=== PATIENT | male | born 1990 | race Caucasian/White ===

== ENCOUNTER 2018-02-25 12:55 | Outpatient (RCR) | payer MEDICAID, SELFPAY ==
--- NOTE | 2018-02-25 10:45 | IE_ITS ---
Date: February 25, 2018 Referring: Dr. Jerald Simpson Diagnosis: Paraplegia and transient R leg weakness P.T. Diagnosis: Same SUBJECTIVE: History of Present Illness: Pt presents with his mother and 2 caregivers. Mother and caregivers provide entirety of history as pt is non-verbal. They state that Daniel has been progressively losing strength and muscle mass. he has been diagnosed with osteopenia and has had 4 fractures of the RLE and multiple compression fractures in the spine. His mother has questions about building LE strength and bone density and general prevention of fractures and injury. They report that pt is able to do supervised transfers and is able to stand for short periods to brush his horse. He does weekly horseback riding sessions utilizing a Mitali lift and also attends the pool for aquatic exercises with assistance from his caregivers 3x/week. He does this at the [facility], where his mother reports that the water is quite deep. He had used the [facility] previously and she states that she would like to return there as the water is shallower and would allow for more WB. Pain Rating: Unable to verbalize. Current Level of Function: Pt is currently non-ambulatory. As noted above, he is able to statically stand for short periods with assistance from his caregivers. He transfers with supervision. Utilizes a lift to get in and out of the pool. Previous Treatment: Pt has had PT intervention several years ago consisting primarily of aquatic therapy. He has been carrying out this program independently with caregivers 3x/week. He also receives hippotherapy weekly. Social: Comorbidities: Anxiety, incontinence, asthma, thyroid dysfunction and osteoporosis. Pt's mother reports history of 4 fractures in the RLE including a rotted femur. Falls in the last year: __X__ No Reported hospitalizations in the last year - __X__ No Medications: Cirtruline, ergocalciferol, alendronate, hydrochlorothiazide, lisinopril, acetaminophen, levothyroxine, multi-vitamin, polyethylene glycol. Quality of Life: __Unable to rate_ Standardized Measures: As filled out by pts mother: 85% deficit OBJECTIVE: Posture: Pt is semi-reclined on treatment table at initiation of session. He has caregiver on either side of him holding his hands and assisting with calming him. He is able to perform assisted standing, where he demonstrates significant thoracic kyphosis with a R scoliotic convexity. He also maintains LE pressure to the edge of his wheelchair and maximal UE support to rail. Requires mod assist of 2 from caregivers. In seated position, pt is in a luz marina space chair with head support and seatbelt and pressure relief cushion. He has fixed leg rests bilaterally. Observation: (behavior, atrophy, skin color, etc.) Pt is non-verbal. He is quite vocal throughout session and appears anxious. He is calmed by his caregivers by holding their hands and performing counting exercises. He does become agitated at times, pushing WW out of his way and grabbing the clothing of treating therapist on 3 occasions. He also swats at his caregivers on a couple of occasions. Pt has bilateral AFOs. Gait: Unable. Pt is able to independently transfer from plinth to chair with supervision and without assistive device. He demonstrates excellent safety with this. He attempted sit to stand transfer with WW, although becomes quite agitated during completion.Instead, attempted sit to stand transfer with use of fixed bar, where pt is is able to pull up anteriorly and he requires mod assist of 2 from caregivers and statically stands with support x 30 min. Palpation: Pt has obvious atrophy of bilateral LE's. Edema: None. ROM: Grossly WNL. Pt demonstrates normal UE motions. He lacks about 10 degrees of knee extension bilaterally. Ankle motion not assessed due to AFOs in place. Strength: Blue Split Trimmer is strong and equal. Pt is able to demonstrate full AROM of bilateral UE' s. He is unable to follow instructions for manual muscle testing; however, he demonstrates obvious strength with functional mobility. LEs' allow 3/5 hip flexion, 3/5 knee extension, again unable to follow commands for manual muscle testing. Treatment: Today's treatment consisted of evaluation, followed by extensive treatment planning with pt's mother and caregiver's. IE: [id number] Direct treatment time: 50 min Total treatment time: 50 min ASSESSMENT: Patient is a 27-year-old male, referred for PT services with the diagnosis of paraplegia and transient RLE weakness. Patient presents with clinical signs and symptoms consistent with mobility issues related to paraplegia and autism. His evaluation is quite limited today due to his levels of anxiety and difficulty following commands for participation during evaluation. His mother's primary concern is improving his bone density and preventing progression of his osteopenia, which will be best addressed with WB activity. He is currently performing an excellent home program including aquatic therapy 3x/week and hippotherapy once a week. However, he really requires introduction of more WB activity, which can be addressed here in the clinic. This may be limited based on pts ability to participate given his levels of anxiety with me today; however , I suspect that we can rely on caregiver instruction as he is extremely comfortable with his caregivers and participates nicely with their assistance. Our goals will be to establish a home program that they can carry-out on a day to day basis. He currently demonstrates the following impairment level findings : decreased LE strength as demonstrated by visible atrophy of the LE musculature , decreased ROM with pt lacking terminal knee extension in the knees, decreased activity tolerance with inability to stand greater than 30 sec. with assistance. Impairments are contributing to the following functional limitations:decreased ability to statically stand, unable to take steps as he had been previously able to perform, development of osteoporotic changes related to non-ambulatory status. Patient is assessed as: __X__ High 13952 complexity, based on the following: History: (list): 27 yo male with autism and paraplegia with marked functional limitations and ciowei-fau-ljldk care. Pt is non-ambulatory and has challenges with participation given levels of anxiety. Examination: (list): X See above for functional limitations and impairments. Presentation: X Unstable Decision-Making: X High complexity __X__ Patient requires skilled PT intervention to remediate the above functional limitations to return to: __X__ Improve QOL __X__ Other: Prevent decline Prognosis: __X__ Fair STG: __6__ weeks. 1. Pt able to tolerate introduction of therapeutic exercises in clinical setting without combative behaviors. 2. Pt able to tolerate static standing with assistance from caregivers x 2 min. for improved ease of self care. LTG: __12__ weeks. 1. Pt able to tolerate standing in a lift-assist at home for 5 min. at a time for prolonged WB to reduce progression of osteoporotic changes. 2. Independent in home program for completion with caregivers. PLAN: Patient to be seen weekly for introduction of WB activities. Will instruct caregivers in a progressive home program. They were provided with handouts for some early exercises that they can initiate from the seated position. I also provided pts mother with a note recommending transition to use of [employer] pool for shallower low end to increase WB forces through the LEs. Thank you for this referral. Please do not hesitate to contact me with any questions or concerns regarding this patient's plan of care. SS/fw
== END 2018-02-27 23:59 | disposition home or self-care (01) ==
LOC: PT 12:55
PROVIDERS: PCP Family Medicine; Referring Provider Family Medicine; Visit Provider Family Medicine
DX: G82.20 Paraplegia, unspecified (principal); M62.81 Muscle weakness (generalized)
CPT/HCPCS: 97163

== ENCOUNTER 2019-01-14 10:10 | Outpatient (CLI) | payer MEDICAID, SELFPAY ==
[2019-01-14 11:51] LABS: ALT 71 U/L (12-78); AST 29 U/L (15-37); Alkaline Phosphatase 80 U/L (46-116); Anion Gap 10.7 mmol/L (3-11); BUN 16 mg/dL (7-18); Bilirubin, Total 1.6 mg/dL (0.2-1.0); CO2 26.3 mmol/L (21.0-32.0); CREATININE 0.94 mg/dL (0.70-1.30); Calcium 9.3 mg/dL (8.5-10.1); Calculated LDL 73 mg/dL; Chloride 98 mmol/L (98-107); Cholesterol 142 mg/dL (50-200); Glucose 362 mg/dL (70-100); HDL Cholesterol 30 mg/dL (40-60); Sodium 135 mmol/L (136-145); TSH (W/Ref FT4) 1.76 uIU/mL (0.358-3.74); Total Protein 7.7 g/dL (6.4-8.2); Triglyceride 195 mg/dL (30-150)
== END 2019-01-14 10:30 ==
PROVIDERS: PCP Family Medicine; Visit Provider Family Medicine
DX: E03.9 Hypothyroidism, unspecified (principal); Z13.220 Encounter for screening for lipoid disorders
CPT/HCPCS: 36415; 80053; 80061; 83721; 84443

== ENCOUNTER 2019-03-02 12:42 | Outpatient (REF) | payer MEDICAID, SELFPAY ==
[2019-03-02 21:07] LABS: Abs Immature Grans 0.02 k/cumm (0.0-0.09); Absolute Basophil Count 0.03 k/cumm (0.0-0.2); Absolute Eosinophil Count 0.07 k/cumm (0.0-0.7); Absolute Lymphocyte Count 1.09 k/cumm (1.2-3.4); Absolute Monocyte Count 0.37 k/cumm (0.11-0.7); Absolute Neutrophil Count 5.08 k/cumm (1.2-6.7); Basophils % 0.5; Eosinophils % 1.1; HCT 49.3 % (40.0-50.0); Immature Grans % 0.3; Lymphocytes % 16.4; Mean Corp. HGB Concentration 34.5 g/dL (32.0-36.0); Mean Corpuscular Volume 87.1 fL (80-95); Mean Platelet Volume 12.4 fL (8.0-11.0); Monocytes % 5.6; Neutrophils % 76.1; Platelet Count 139 x1000/uL (130-400); RBC 5.66 m/cumm (4.50-6.00); RBC Distribution Width 13.4 % (11.8-14.1); White Blood Cell Count 6.66 k/cumm (4.4-10.8)
[2019-03-02 21:32] LABS: Hemoglobin A1C 8.6 % (4.5-6.2)
== END 2019-03-02 13:02 ==
LOC: NCHCN 12:42
PROVIDERS: PCP Family Medicine; Visit Provider Family Medicine
DX: R73.9 Hyperglycemia, unspecified (principal); Z13.0 Encounter for screening for diseases of the blood and blood-forming organs and certain disorders involving the immune mechanism
CPT/HCPCS: 83036; 85025

== ENCOUNTER 2019-03-08 16:14 | Emergency (ER) | payer MEDICAID, SELFPAY ==
--- NOTE | 2019-03-08 16:24 | ED.GENADUL_ITS ---
Discharge Plan Disposition Patient Disposition: HOME Condition: Good Discharge Details Chief Complaint: GenMedical Clinical Impression: URI (upper respiratory infection), Urinary retention Primary Care Provider: Nikki Marques ED Provider: Feli Jones Home Meds and New Rx's Prescriptions: Continued hydrocortisone 30 GM cream 1 applic Topical PRN PRNQty: 60 RF: 0 (DME) blood-glucose meter [FreeStyle Lite Meter] 1 EACH kit 1 ea Miscellaneous TID Qty: 1 RF: 0 acetaminophen 650 MG suppository 650 mg RC Q4H PRN Qty: 40 RF: 2 nystatin 15 GM cream 1 judi Topical BID Qty: 60 RF: 1 alendronate 70 MG tablet 70 mg PO weekly Qty: 13 RF: 3 levothyroxine 50 MCG tablet 50 mcg PO DAILY Qty: 90 RF: 4 lisinopril [Zestril] 10 MG tablet 10 mg PO DAILY Qty: 90 RF: 3 hydrochlorothiazide 25 MG tablet 25 mg PO DAILY Qty: 90 RF: 0 ergocalciferol (vitamin D2) 8,000 UNIT/1 ML drops 6 ml PO PRN Qty: 144 RF: 3 insulin aspart U-100 [Novolog PenFill U-100 Insulin] 100 UNIT/1 ML cartridge 15 units Sub-Q TID Qty: 3 RF: 12 polyethylene glycol 3350 17 GM powder in packet 17 g PO DAILY Qty: 30 RF: 11 sertraline 20 MG/1 ML concentrate 1 ml PO HS Qty: 90 RF: 3 (DME) blood sugar diagnostic [FreeStyle Lite Strips] 1 EACH strip 1 ea Miscellaneous PRN Qty: 180 RF: 11 (DME) pen needle, diabetic [ReliOn Dubois] 1 EACH needle 1 ea Miscellaneous PRN Qty: 1 RF: 4 (DME) lancets [FreeStyle Lancets] 1 EACH misc 1 ea Miscellaneous five times/day Qty: 450 RF: 3 cetirizine 5 MG/5 ML solution 5 - 10 mg PO DAILY PRNQty: 300 RF: 1 pediatric multivitamin [Flintstones Multivitamin] 1 EACH tablet,chewable 2 ea PO DAILY RF: 0 Lactobacillus acidophilus 1 EACH tablet 1 ea PO BID RF: 0 Discharge Instructions Instructions: Urinary Retention in Men (ED), Upper Respiratory Infection (ED) Additional Instructions: Encourage hydration. May continue Tylenol and ibuprofen as needed for discomfort or fevers. Please follow-up with primary care provider at the end of the week if you have fevers and cough have not resolved. At this point, his lungs are clear, no evidence of pneumonia. No evidence of infection in the urine. However, I did speak with urologist who advised follow-up with them as an outpatient. Numbers listed below, referral has been sent. Please feel free to call to schedule follow-up appointment. If he develops shortness of breath, difficulty breathing, inability stay hydrated or the new/worsening symptoms please seek care urgently once again. Referrals: Nikki Marques [Primary Care Provider] - Lambert Thomason MD [ [facility] STAFF PHYSICIAN] - Medical Decision Making Patient 28-year-old autistic male presents today, brought in by his caregivers, with concern for fever. Exam is limited as the patient does easily become agitated and does swing when agitated. He is noted to have thick green nasal discharge. Ears are clear bilaterally. His lungs are clear bilaterally. Normal cardiac exam. Abdomen is soft with no tenderness noted. They are concerned that he has had diminished urinary output and are concerned he may have a UTI. Plan for urinalysis as well as postvoid residual as they are concerned he is also had diminished urinary output despite continued hydration. I am primarily concerned for viral infection given the cough and thick nasal discharge. Lungs are clear, do not see any evidence of pneumonia at this point. We will also attempt to get vital signs, patient became too agitated for nurs ing staff for this to be completed. Patient is not coming into the department secondary to his anxiety and how agitated he becomes. Rather, we are walking around to complete the physical exam, home caregivers prefer to keep him out of the department for me urinalysis outside emergency department, they feel they are able to do this easily in bathroom. Urinalysis negative for infection. Perform post void residual, patient has 315 post void. However, after discussing these findings with the caregivers, they report that he typically urinates much better when the supine position. This sample was performed more upright which may also have contributed to his residual. With the patient's current mental status, how easily he becomes agitated, I do not feel that straight cathing him is appropriate at this point. Will consult with urology regarding findings. Consulted with Dr. Thomason regarding post void of 300. He advised, particularly as the patient was not in his optimal position for voiding, does not feel that catheter is needed. Does not feel that further assessment is needed in the emergent setting. feels that this may also be the patients baseline, advised f/u with urology as an outpatient. Discussed these recommendations with the care providers. I advised that his low-grade fevers at home are likely associated with his URI symptoms. Again, I do not see any evidence of pneumonia or bacterial infection. I feel that continued monitoring and follow-up with primary care is appropriate. Encourage hydration. Advised he may continue with Tylenol and ibuprofen as needed for discomfort or fevers. He will call tomorrow to schedule appointment with primary care. I will also call to schedule follow-up appointment with Dr. Thomason as an outpatient. All other questions and concerns were addressed in agreement this plan. They were given strict return precautions. HPI General Mode of arrival: wheelchair . Date/Time Provider Initiated Documentation: 03/08/19 16:23 . Limitations to Documentation: physical limitation (Patient has autism limiting his medication) . Information obtained by: family (health care facilities inspector) and RN notes reviewed . HPI Narrative: Patient is a 28-year-old male, history of autism, with concern for fever. He is brought in by his home caregivers. Patient is nonverbal. He is sitting in a wheelchair, appears to be care of his guardians. Guardians are concerned that he began having a low-grade fever last night and into today. They report that he has had diminished appetite. Report diminished urinary output. Has been hydrating. He has not been endorsing any pain. They have noted thick green nasal discharge as well as mild cough. He has not been endorsing any pain anywhere. States that he has had a few episodes of loose stool. No blood in stool. No recent travel. No recent antibiotics. Related Data Home Medications Medication Instructions Recorded Confirmed hydrocortisone 1 applic TOPICAL PRN PRN #60 gm 09/25/12 01/23/17 blood-glucose meter [FreeStyle #1 kit 11/25/14 Lite Meter] acetaminophen 650 mg RC Q4H PRN #40 supp 08/04/15 nystatin 1 judi TOPICAL BID #60 gm 08/04/15 alendronate 70 mg PO weekly #13 tab-cap 01/05/16 ergocalciferol (vitamin D2) 6 ml PO PRN #144 ml 01/05/16 hydrochlorothiazide 25 mg PO DAILY #90 tab-cap 01/05/16 insulin aspart U-100 [Novolog 15 units SUB-Q TID #3 cartridge 01/05/16 PenFill U-100 Insulin] levothyroxine 50 mcg PO DAILY #90 tab-cap 01/05/16 lisinopril [Zestril] 10 mg PO DAILY #90 tab 01/05/16 polyethylene glycol 3350 17 g PO DAILY #30 packet 01/05/16 sertraline 1 ml PO HS #90 ml 01/05/16 blood sugar diagnostic [FreeStyle #180 strip 01/09/16 Lite Strips] lancets [FreeStyle Lancets] #450 ea 01/09/16 pen needle, diabetic [ReliOn #1 box 01/09/16 Dubois] cetirizine 5 - 10 mg PO DAILY PRN #300 ml 02/14/16 Lactobacillus acidophilus 1 ea PO BID 01/23/17 01/23/17 pediatric multivitamin 2 ea PO DAILY 01/23/17 01/23/17 [Flintstones Multivitamin] Allergies Allergy/AdvReac Type Severity Reaction Status Date / Time ketamine Allergy Mild VOMITS/HIVE Unverified 01/23/17 15:58 S Sulfa (Sulfonamide Allergy Mild RASH/SORES Unverified 01/23/17 15:58 Antibiotics) Cat Dander Allergy Unknown Uncoded 01/23/17 15:58 Review of Systems Review of Systems Unobtainable due to mental condition (patient nonverbal at baseline) [facility] [place] [facility] [place] Mother No problems noted. Father No problems noted. Brother No problems noted. Grandfather No problems noted. Grandfather No problems noted. Grandmother No problems noted. Grandmother No problems noted. Exam Const General: cooperative, healthy appearing, comfortable, no acute distress, well developed and well groomed Nutritional Appearance: well nourished and overweight Orientation: alert and awake [facility] Head: normal to inspection, normocephalic and atraumatic Ears: hearing grossly normal bilaterally, external ears normal and TM's normal bilaterally General nose exam: external nose normal and nasal discharge purulent bilaterally Face and sinus: normal facial exam, sinuses nontender and face symmetric Mouth: oral mucosae normal, lip normal, tongue normal and oropharynx abnormals (unable to visualize in entirety secondary to inability to cooperate) Eyes General: appearance normal, both eyes and all related structures Neck Neck: normal visual inspection, full ROM, no lymphadenopathy and no meningeal signs Resp Effort & Inspection: normal respiratory effort, able to speak in complete sentences and no respiratory distress Auscultation: clear to auscultation bilaterally, no rales, no rhonchi and no wheezes Cardio Rate: regular rate Rhythm: regular rhythm Heart Sounds: S1 normal and S2 normal GI Inspection: normal to inspection and obesity Palpation: soft, not firm, no guarding, not rigid and nontender Auscultation: normal bowel sounds Back/Spine/Pelvis Back: no CVA tenderness Skin General skin exam: no rashes or lesions noted Neuro General: alert and awake Speech: speech normal Gait: gait abnormal (nonambulatory at baseline, in wheelchair) Psych Appearance: well kempt
[2019-03-08 17:36] LABS: Bilirubin Negative (Negative); Blood Negative (Negative); Clarity Clear (Clear); Glucose 100 mg/dL (Negative); Ketones Negative (Negative); Leukocyte Esterase Negative (Negative); Nitrite Negative (Negative); Specific Gravity 1.015 (1.005-1.025); Urobilinogen 0.2 EU/dL (Up TO 0.2)
[2019-03-08 17:47] LABS: Bacteria Negative HPF (Negative); C & S Indicated? No; Casts Negative LPF (Negative); Crystals Negative HPF (Negative); Epithelial Cells Negative HPF (Negative); Mucus Negative (Negative); Other Cells Negative (Negative); RBC Negative (0-2); WBC Negative HPF (0-5)
--- NOTE | 2019-03-09 09:51 | NUR.NOTE ---
[facility], Dr. Thomason.Nursing Note:
== END 2019-03-08 18:18 | disposition home or self-care (01) ==
PROVIDERS: Emergency Provider Physician Assistant; PCP Family Medicine
DX: J06.9 Acute upper respiratory infection, unspecified (principal); R33.9 Retention of urine, unspecified; F84.0 Autistic disorder
CPT/HCPCS: 99282; 81003; 81015

== ENCOUNTER 2019-03-16 09:12 | Outpatient (CLI) | payer MEDICAID, SELFPAY ==
--- NOTE | 2019-03-16 17:00 | DIABASSESS_ITS ---
DESCRIPTION/ASSESSMENT: The family and support team of grandmother, mother, aunt, brother and coordinator for Daniel Chavez presents for nutrition consult to manage the blood sugars of Daniel Chavez. Blood sugars are near normal when his food choices are managed well, in 200s when food is more indiscriminate. He is 28 years old with infantile autism; weight 230 pounds. Daniel is cared for by caregivers and his family. His food choices vary depending on the caregiver and at times he is given food that will cause blood sugars to increase. Daniel also may act out if he does not get what he wants to eat. Daniel is physically inactive requiring assistance for all activities. INTERVENTION: Reviewed diabetes food guide focused on distribution of calories, appropriate portions, importance of vegetables and fruit, degree foods are processed and contain additives. Discussed food choices Daniel will like that are healthier than his usual snack food. The group voiced understanding and their questions were answered. ACTION PLAN: Share the food plan with all caregivers; attempt to limit highly processed meals including snacks; no sugar sweetened beverages. They will be in touch as they have questions. Individual MNT __4__ units billed TIME IN: 1700 OUT: 1820 No DM group education series being offered at this time.
== END 2019-03-16 09:32 ==
PROVIDERS: PCP Family Medicine; Visit Provider Dietitian, Registered
DX: E11.9 Type 2 diabetes mellitus without complications (principal); Z71.3 Dietary counseling and surveillance
CPT/HCPCS: 97802

== ENCOUNTER 2021-03-13 02:11 | Outpatient (CLI) | payer MEDICAID, SELFPAY ==
[2021-03-13 10:20] LABS: Hemoglobin A1C 6.2 % (<5.7)
[2021-03-13 11:15] LABS: ALT 77 U/L (16-63); AST 31 U/L (15-37); Albumin 4.2 g/dL (3.4-5.0); Alkaline Phosphatase 93 U/L (46-116); Anion Gap 8.7 mmol/L (3-11); BUN 13 mg/dL (7-18); Bilirubin, Total 1.3 mg/dL (0.2-1.0); CO2 30.3 mmol/L (21.0-32.0); CREATININE 1.1 mg/dL (0.70-1.30); Calcium 9.4 mg/dL (8.5-10.1); Calculated LDL 93 mg/dL (<100); Chloride 103 mmol/L (98-107); Cholesterol 153 mg/dL (<200); Glucose 124 mg/dL (74-106); HDL Cholesterol 36 mg/dL (40-60); Potassium 3.8 mmol/L (3.5-5.1); Sodium 142 mmol/L (136-145); TSH (W/Ref FT4) 3.53 uIU/mL (0.36-3.74); Total Protein 7.9 g/dL (6.4-8.2); Triglyceride 124 mg/dL (<150)
== END 2021-03-13 02:12 | disposition home or self-care (01) ==
PROVIDERS: PCP Family Medicine; Visit Provider Family Medicine
DX: E03.9 Hypothyroidism, unspecified (principal); R73.03 Prediabetes
CPT/HCPCS: 36415; 80053; 80061; 82306; 83036; 84443

== ENCOUNTER 2022-05-27 16:39 | Outpatient (REF) | payer MEDICAID, SELFPAY ==
[2022-05-27 17:55] LABS: HGB 17.2 g/dL (13.5-17.5); MCHC 34.4 % (32.0-36.0); MCV 87 fL (80-95); MPV 12.2 fL (8.0-11.0); Platelet Count 123 10^3/uL (130-400); RBC 5.73 10^6/uL (4.36-5.78); RDW 12.7 % (11.8-14.1); RDW-SD 40.3 fL; WBC 6.49 10^3/uL (4.4-10.8)
[2022-05-27 18:25] LABS: ALT 66 U/L (16-63); AST 28 U/L (15-37); Alkaline Phosphatase 78 U/L (46-116); Anion Gap 6.8 mmol/L (3-11); BUN 21 mg/dL (7-18); Bilirubin, Total 0.8 mg/dL (0.2-1.0); CO2 28.2 mmol/L (21.0-32.0); CREATININE 1.2 mg/dL (0.70-1.30); Calcium 9.3 mg/dL (8.5-10.1); Chloride 99 mmol/L (98-107); Estimated GFR 83.95 (mL/min/1.73m2); Glucose 433 mg/dL (74-106); Potassium 4.5 mmol/L (3.5-5.1); Sodium 134 mmol/L (136-145); Total Protein 8.1 g/dL (6.4-8.2)
== END 2022-05-27 16:40 | disposition home or self-care (01) ==
LOC: NCHCN 16:39
PROVIDERS: PCP Family Medicine; Visit Provider Family Medicine
DX: E03.9 Hypothyroidism, unspecified (principal); I10 Essential (primary) hypertension; E11.9 Type 2 diabetes mellitus without complications
CPT/HCPCS: 80053; 85027; 84443

== ENCOUNTER 2023-05-28 14:21 | Outpatient (REF) | payer MEDICAID, SELFPAY ==
[2023-05-28 21:35] LABS: Abs Immature Grans 0.03 10^3/uL (0.0-0.06); Absolute Basophil Count 0.06 10^3/uL (0.0-0.2); Absolute Eosinophil Count 0.08 10^3/uL (0.0-0.7); Absolute Lymphocyte Count 1.63 10^3/uL (1.2-3.4); Absolute Monocyte Count 0.69 10^3/uL (0.1-0.8); Absolute Neutrophil Count 6.24 10^3/uL (1.2-6.7); Basophils % 0.7; Eosinophils % 0.9; HCT 51.4 % (40.0-50.0); HGB 17.9 g/dL (13.5-17.5); Immature Grans % 0.3; Lymphocytes % 18.7; MCH 30.6 pg (27.0-33.0); MCHC 34.8 % (32.0-36.0); MCV 88 fL (80-95); MPV 11.9 fL (8.0-11.0); Monocytes % 7.9; Neutrophils % 71.5; Platelet Count 169 10^3/uL (130-400); RBC 5.85 10^6/uL (4.36-5.78); RDW 13.2 % (11.8-14.1); RDW-SD 42.6 fL; WBC 8.73 10^3/uL (4.4-10.8)
[2023-05-28 21:53] LABS: ALT 80 U/L (16-63); AST 54 U/L (15-37); Albumin 4.3 g/dL (3.4-5.0); Alkaline Phosphatase 66 U/L (46-116); Anion Gap 12.3 mmol/L (3-11); BUN 21 mg/dL (7-18); Bilirubin, Total 1.3 mg/dL (0.2-1.0); CO2 24.7 mmol/L (21.0-32.0); CREATININE 1.3 mg/dL (0.70-1.30); Calcium 9.7 mg/dL (8.5-10.1); Chloride 103 mmol/L (98-107); Estimated GFR 75.79 (mL/min/1.73m2); Glucose 139 mg/dL (74-106); Potassium 4.9 mmol/L (3.5-5.1); Sodium 140 mmol/L (136-145); TSH 1.26 uIU/mL (0.36-3.74); Total Protein 8.3 g/dL (6.4-8.2)
== END 2023-05-28 14:22 | disposition home or self-care (01) ==
LOC: NCHCN 14:21
PROVIDERS: PCP Family Medicine; Visit Provider Family Medicine
DX: I10 Essential (primary) hypertension (principal); E03.9 Hypothyroidism, unspecified
CPT/HCPCS: 80053; 84443; 85025

== ENCOUNTER 2024-02-19 17:42 | Emergency (ER) | payer MEDICAID, SELFPAY ==
[2024-02-19 17:45] VITALS: BP 119/79; PULSE 103; RESP 16; TEMP 36.2; O2SAT 98
--- NOTE | 2024-02-19 18:00 | DI.RAD_ITS ---
Exam(s) XR PORTABLE CHEST AP EXAM: XR PORTABLE CHEST AP CLINICAL HISTORY: cough, eval for pneumonia TECHNIQUE: 2D digital imaging was performed of the chest. Two images were obtained. AP views were obtained. COMPARISON: No exams were available for comparison FINDINGS: Examination is limited due to patient positioning. MEDIASTINUM: Normal. HEART: Normal. PULMONARY VASCULATURE: Normal. LUNGS: Clear. PLEURAL SPACE: No pleural effusions. The lung apices are obscured due to patient positioning. Prese nce of a small pneumothorax cannot be adequately evaluated on this examination. BONE:Within normal limits for the patient's age. OTHER FINDINGS:Normal. IMPRESSION: Within the limits of the examination, no acute pulmonary process. DATA REPOSITORY: RADIATION DOSE DELIVERED:
--- NOTE | 2024-02-19 18:15 | W.ED.GENAD ---
Discharge Plan Disposition Patient Disposition: Home Condition: Good Discharge Details Clinical Impression: Community acquired pneumonia Primary Care Provider: Nikki Marques ED Provider: Tyron Carreno Home Meds and New Rx's Prescriptions: New amoxicillin-pot clavulanate 875-125 mg tablet 1 tab PO BID 7 Days Qty: 14 0RF No Action hydrocortisone 30 GM cream 1 applic Topical PRN PRNQty: 60 Rx Instructions: DISPENSE 2.55 cream (DME) blood-glucose meter [FreeStyle Lite Meter] 1 EACH kit 1 ea Miscellaneous TID Qty: 1 Rx Instructions: Type II DM Pt tests sugar 3 times/day acetaminophen 650 MG suppository 650 mg RC Q4H PRN Qty: 40 Rx Instructions: no more than 4 doses/24 hours nystatin 15 GM cream 1 judi Topical BID Qty: 60 Rx Instructions: apply thin layer to affected area in groin until healed alendronate 70 MG tablet 70 mg PO weekly Qty: 13 levothyroxine 50 MCG tablet 50 mcg PO DAILY Qty: 90 lisinopril [Zestril] 10 MG tablet 10 mg PO DAILY Qty: 90 Rx Instructions: 1 tab po qd hydrochlorothiazide 25 MG tablet 25 mg PO DAILY Qty: 90 ergocalciferol (vitamin D2) 8,000 UNIT/1 ML drops 6 ml PO PRN Qty: 144 Patient Comments: every 3 days Rx Instructions: GIVE 6 ML PO EVERY 3 DAYS. insulin aspart U-100 [Novolog PenFill U-100 Insulin] 100 UNIT/1 ML cartridge 15 units Sub-Q TID Qty: 3 Rx Instructions: GIVE ADDITIONAL DOSES DIRECTED. polyethylene glycol 3350 17 GM powder in packet 17 g PO DAILY Qty: 30 sertraline 20 MG/1 ML concentrate 1 ml PO HS Qty: 90 (DME) blood sugar diagnostic [FreeStyle Lite Strips] 1 EACH strip 1 ea Miscellaneous PRN Qty: 180 Rx Instructions: patient will test 6 x/day Dx: E11.9 (DME) pen needle, diabetic [ReliOn Closter] 1 EACH needle 1 ea Miscellaneous PRN Qty: 1 Rx Instructions: KENISHA NEEDLES to use with Novolog E11.9 (DME) lancets [FreeStyle Lancets] 1 EACH misc 1 ea Miscellaneous five times/day Qty: 450 Rx Instructions: E11.9 cetirizine 5 MG/5 ML solution 5 - 10 mg PO DAILY PRNQty: 300 Flintstones Multivitamin 1 EACH tablet,chewable 2 ea PO DAILY Lactobacillus acidophilus 1 EACH tablet 1 ea PO BID quetiapine 50 mg tablet 50 mg PO DAILY Patient Comments: TAKE 1 TABLET BY MOUTH EVERY MORNING metformin 500 mg tablet 500 mg PO DAILY Patient Comments: TAKE ONE TABLET BY MOUTH TWICE A DAY Trulicity 1.5 mg/0.5 mL pen injector 1.5 mg SUBCUT ONCE Patient Comments: INJECT 1.5MG (1 PEN) SUBCUTANEOUSLY EVERY WEEK Discharge Instructions Instructions: Community-Acquired Pneumonia, Adult (DC) Additional Instructions: At this time I am concerned that you have community-acquired pneumonia despite the x-ray looking okay. Please take the antibiotic as prescribed. If you notice any worsening of your symptoms, or any new symptoms such as vomiting, diarrhea, fever, chills, shortness of breath, chest pain, numbness, weakness, or fainting , please return immediately to the emergency department for reevaluation. Please follow up with your primary care provider as soon as possible for reassessment and reevaluation. As always, it was a pleasure participating in your medical care today. Referrals: Nikki Marques [Primary Care Provider] - Discharge Data Discharge Date/Time-TO BE ENTERED AT DEPARTURE: 02/19/24 19:43 HPI General Date/Time Provider Initiated Documentation: 02/19/24 17:53. HPI Narrative: 33-year-old male with a past medical history of severe autism, asthma, depression, diabetes type 2, hypertension, hypothyroidism, who presents today for cough. Symptoms have been present for the last 6 days. He has had decreased appetite in the last 24 hours. No fever. No blood. He had diarrhea for 1 or 2 episodes 5 days ago, but this is since resolved. No fever at home. No chest pain. Difficult to ascertain any other historical components secondary to patient's autism. Related Data Home Medications ?Medication ?Instructions ?Recorded ?Confirmed hydrocortisone 2.5 % topical cream 1 applic topical PRN PRN ##60 09/25/12 02/19/24 blood-glucose meter (FreeStyle ##1 11/25/14 Lite Meter kit) acetaminophen 650 mg rectal 650 mg RC Q4H PRN #40 supp 08/04/15 02/19/24 suppository nystatin 100,000 unit/gram topical 1 judi topical BID #60 grams 08/04/15 02/19/24 cream alendronate 70 mg tablet 70 mg PO weekly #13 tab-caps 01/05/16 02/19/24 ergocalciferol (vitamin D2) 200 6 ml PO PRN #144 mL 01/05/16 02/19/24 mcg/mL (8,000 unit/mL) oral drops hydrochlorothiazide 25 mg tablet 25 mg PO DAILY #90 tab-caps 01/05/16 02/19/24 insulin aspart U-100 100 unit/mL 15 units subcut TID ##3 01/05/16 02/19/24 subcutaneous cartridge (Novolog PenFill U-100 Insulin aspart) levothyroxine 50 mcg tablet 50 mcg PO DAILY #90 tab-caps 01/05/16 02/19/24 lisinopril 10 mg tablet (Zestril) 10 mg PO DAILY #90 tabs 01/05/16 02/19/24 polyethylene glycol 3350 17 gram 17 g PO DAILY #30 packets 01/05/16 02/19/24 oral powder packet sertraline 20 mg/mL oral 1 ml PO HS #90 mL 01/05/16 02/19/24 concentrate blood sugar diagnostic (FreeStyle #180 strips 01/09/16 Lite Strips) lancets 28 gauge (FreeStyle #450 ea 01/09/16 Lancets) pen needle, diabetic 31 gauge x ##1 01/09/1607/03 (ReliOn Closter) cetirizine 5 mg/5 mL oral solution 5 - 10 mg PO DAILY PRN #300 mL 02/14/16 02/19/24 Lactobacillus acidophilus 2 1 ea PO BID 01/23/17 02/19/24 billion cell tablet pediatric multivitamin 2 ea PO DAILY 01/23/17 02/19/24 (Flintstones Multivitamin chewable tablet) amoxicillin 875 mg-potassium 1 tab PO BID 7 days #14 tabs 02/19/24 clavulanate 125 mg tablet dulaglutide 1.5 mg/0.5 mL 1.5 mg subcut ONCE 02/19/24 02/19/24 subcutaneous pen injector (Trulicity) metformin 500 mg tablet 500 mg PO DAILY 02/19/24 02/19/24 quetiapine 50 mg tablet 50 mg PO DAILY 02/19/24 02/19/24 Previous Rx's ?Medication ?Instructions ?Recorded amoxicillin 875 mg-potassium 1 tab PO BID 7 days #14 tabs 02/19/24 clavulanate 125 mg tablet Allergies Allergy/AdvReac Type Severity Reaction Status Date / Time ketamine Allergy Mild VOMITS/HIVE Verified 02/19/24 17:59 S Sulfa (Sulfonamide Allergy Mild RASH/SORES Verified 02/19/24 17:59 Antibiotics) Cat Dander Allergy Unknown Unknown Uncoded 02/19/24 17:59 General Stated Complaint: GenMedical FADI: 3 Review of Systems All systems reviewed & are unremarkable except as noted in HPI and below Exam Narrative Exam Narrative: 1.Const: Well-nourished, Well-developed, appearing stated age 2.Eyes: PERRL, no conjunctival injection, and symmetrical lids. 3.ENT: Atraumatic external nose and ears. Moist MM. Neck: Symmetric, trachea midline, No thyromegaly. 4.CVS: +S1/S2, No murmurs or gallops. Peripheral pulses 2+ and equal in all extremities. Brisk capillary refill in all extremities. 5.RESP: Unlabored respiratory effort. Questionable crackles in the right lung field 6.GI: Soft, Nontender/Nondistended, No hepatosplenomegaly. No guarding or rebound. 7.MSK: Normocephalic/Atraumatic, Extremities w/o deformity or ttp No cyanosis or clubbing, Normal movement of all extremities 8.Skin: Warm, Dry. No rashes or lesions. 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 Sensation grossly intact, no focal neurologic deficits. 10.Psych: (AAO) x0. At baseline autism status. Course Vital Signs Vital signs: Vital Signs Temperature 36.2 C L 02/19/24 17:45 Pulse 103 H 02/19/24 17:45 Respiratory Rate 16 02/19/24 17:45 Blood Pressure 119/79 02/19/24 17:45 Pulse Oximetry 98 02/19/24 17:45 Temperature 36.2 C L 02/19/24 17:45 Pulse 103 H 02/19/24 17:45 Respiratory Rate 16 02/19/24 17:45 Respiratory Effort Normal 02/19/24 17:56 Blood Pressure 119/79 02/19/24 17:45 Blood Pressure Position Sitting 02/19/24 17:45 Pulse Oximetry 98 02/19/24 17:45 Oxygen Delivery Method Room Air 02/19/24 17:45 Oxygen Flow Rate 0 02/19/24 17:45 Pain Level 0 02/19/24 17:45 Medical Decision Making 33-year-old male with a past medical history of severe autism, asthma, depression, diabetes type 2, hypertension, hypothyroidism, who presents today for cough. Symptoms have been present for the last 6 days. He has had decreased appetite in the last 24 hours. No fever. No blood. He had diarrhea for 1 or 2 episodes 5 days ago, but this is since resolved. No fever at home. No chest pain. Difficult to ascertain any other historical components secondary to patient's autism. Physical exam demonstrates well-appearing male, vital signs stable, mild crackles in right lower lung field. Concern for community-acquired pneumonia. Will get x-ray COVID flu and RSV testing. Will monitor closely and reassess. No evidence of septic shock at this time, or respiratory distress. 6 PM Chest x-ray negative for acute process however visualization is notably challenging secondary to the patient's lack of cooperative biliary with exam secondary to to his baseline autism. However based on his clinical symptoms, persistent cough and symptomatology I do feel that mild clinical pneumonia is currently present. We will treat with Augmentin. Antibiotic choice: We have chosen to give Augmentin here for the patient's pneumonia. Recent resistant pattern studies from our hospital as well as other local facilities including [facility] have both demonstrated significant resistance to azithromycin, and notable susceptibility to common community-acquired pneumonia organisms for both amoxicillin, and Augmentin. Patient will be given prescription for home use. Will give dose here. Discussed red flags for which to return. Family refused Fluvid at this time secondary to patient noncompliance. FINDINGS: Examination is limited due to patient positioning. MEDIASTINUM: Normal. HEART: Normal. PULMONARY VASCULATURE: Normal. LUNGS: Clear. PLEURAL SPACE: No pleural effusions. The lung apices are obscured due to patient positioning. Presence of a small pneumothorax cannot be adequately evaluated on this examination. BONE:Within normal limits for the patient's age. OTHER FINDINGS:Normal. IMPRESSION: Within the limits of the examination, no acute pulmonary process. Quality:SDCT Health Related Social Needs: No Data to Display PFSH All Active Problems Community acquired pneumonia (Acute) Surgical History [facility] [place] Family History Mother No problems noted. Father No problems noted. Brother No problems noted. Grandfather No problems noted. Grandfather No problems noted. Grandmother No problems noted. Grandmother No problems noted. Social History Smoking/Tobacco Use Status: Never Smoking risk assessment performed?: Yes Alcohol Intake: never Substance use type: does not use
--- OUTSIDE RECORDS SUMMARY | 2024-02-19 18:18 | XMS_ITS | Continuity of Care Document ---
Author Organization [facility] Address [address] [place] [id number] Assessment No assessment recorded. Plan of Treatment Reminders Order Date Submit Date Provider Last Modified By Organization Details Last Modified Time Details Appointments Acute 10 2023 02:25P M Not available Not available Not available Office Visit 30 2023 03:00P M Not available Not available Not available Lab hemoglobi n A1C, fingersti ck 2023 024 [facility], [address] [place] [address], [phone], 11/25/2023 11:09:24 Referral None recorded. Procedures None recorded. Surgeries None recorded. Imaging None recorded. Medication Orders None recorded. Patient TargetsNo targets recorded. Patient InstructionsNo instructions recorded. Reason for Referral None Reported. Results Created Date Observation Date Name Description Value Unit Range Abnormal Flag LastModifiedBy Organization Detail LastModifiedTime 11/25/19 24 11/25/2023 hemog lobin A1C, finge rstic k hemoglobin A1C 6.6 % <5.7 Not Available [address], [address], 11/25/2023 11:06:28 Result Notes None recorded. Problems Name Status Onset Date Resolution Date Notes Provider Name and Address Organization Details Recorded Time Hypothyroidis m Active [address], [place], [address] , [facility] 15:58:56 Essential hypertension Active [address], [facility] [address] , [facility] 4 15:58:48 Adult health examination [facility] 10:35:05 Pain in right foot Completed 201601/02/2017 12/23/2016 - Comments only - Nikki Marques MD - No significant injury or tenderness to palpation no treatment needed. Problem Code: M79.671; Problem Code Type: ICD-10; Not Available [facility] 3 05:23:16 Developmental academic disorder Active 2016 [facility] 4 10:35:16 Type 2 diabetes mellitus without complication Active [address], [facility] [address] , [facility] 4 15:55:29 Paraplegia Active [address], [facility] [address] , [facility] 4 15:56:33 Stereotypy habit disorder Active [address], [facility] [address] , [facility] 4 15:58:31 Visual disturbance Completed 202110/14/2023 11/16/2021 - Comments only - Nikki Marques MD - Mikael's mother reports that he is holding things very close to his face noticing or when he is looking at them she does not know if he has not had a change in his vision he has not had an eye exam in many years. We will make referral for him to see ophthalmology at [facility] where they have the specialist that could work with him and his disability. Problem Code: H53.9; Problem Code Type: ICD-10; MD [address]ila [address], [place], [address] , [facility] 4 15:55:58 Pre-surgery evaluation Completed 202101/20/2022 Problem Code: Z01.818; Problem Code Type: ICD-10; Not Available [facility] 3 05:23:16 Pre-surgery evaluation Completed 202104/20/2022 Problem Code: Z01.818; Problem Code Type: ICD-10; Not Available [facility] 3 05:23:16 Conduct disorder Completed 202210/14/2023 Problem Code: F91.8; Problem Code Type: ICD-10; RAFFY DICKINSON MD [address], [place], [address] [facility] 4 15:58:22 Insomnia Active 2022 [facility] 4 10:35:26 Pre-surgery evaluation Completed 202203/15/2023 Problem Code: Z01.818; Problem Code Type: ICD-10; Not Available [facility] 3 05:23:17 Increased frequency of urination Completed 201702/26/2022 Problem Code: R35.0; Problem Code Type: ICD-10; Not Available [facility] 3 05:23:17 Impacted cerumen of bilateral ears Completed 201502/26/2022 Problem Code: H61.23; Problem Code Type: ICD-10; Not Available [facility] 3 05:23:19 Hyperlipidemi a screening Completed 201802/26/2022 Problem Code: Z13.220; Problem Code Type: ICD-10; Not Available [facility] 3 05:23:21 Diarrhea Completed 201601/15/2018 Problem Code: R19.7; Problem Code Type: ICD-10; Not Available [facility] 3 05:23:22 Hyperglycemia Completed 201601/15/2018 08/11/2019 - Comments only - Nikki Marques MD - Patient's blood sugars actually stay within normal range off all medications as his diet is well controlled and he is exercising. His caregivers have improved his diet and have him exercising more frequently and his blood sugars are now beginning to turn more normally will stop the metformin because he is having a lot of lows and we will see him back in 3 months and do an A1c to see where he is running. Problem Code: R73.9; Problem Code Type: ICD-10; Not Available [facility] 3 05:23:22 Anxiety disorder Completed 201505/14/2017 Problem Code: F41.9; Problem Code Type: ICD-10; Not Available [facility] 3 05:23:22 Type 2 diabetes mellitus without complication Completed 201501/09/2017 Problem Code: E11.9; Problem Code Type: ICD-10; RAFFY DICKINSON MD [address], [place], [address] , [facility] 4 15:55:30 Herpesviral vesicular dermatitis Completed 201605/14/2017 Problem Code: B00.1; Problem Code Type: ICD-10; Not Available [facility] 3 05:23:26 Tinea corporis Completed 201602/26/2022 Problem Code: B35.4; Problem Code Type: ICD-10; Not Available [facility] 3 05:23:27 Muscle weakness Completed 201604/22/2018 Problem Code: M62.81; Problem Code Type: ICD-10; Not Available [facility] 3 05:23:28 Foot pain Completed 201702/26/2022 Problem Code: M79.673; Problem Code Type: ICD-10; Not Available [facility] 3 05:23:28 Prediabetes Completed 201603/26/2023 02/08/2021 - Comments only - Nikki Marques MD - Patient's blood sugars have been within normal range we will go ahead and get a repeat A1c to see where he is at now. Problem Code: R73.03; Problem Code Type: ICD-10; Not Available [facility] 3 05:23:31 Autism spectrum disorder Active 2022 RAFFY DICKINSON MD [address], [place], [address] , [facility] 4 15:58:28 Allergic rhinitis Active [address], [facility] [address] , [facility] 3 13:55:26 Problem Notes None recorded. Medical Equipment None Reported. Allergies Allergen ID Allergen Name Allergen Category Reaction Reaction Severity Criticality Documentation Date Start Date Code Code System Note Provider Name and Address Organization Details Recorded Time 45348 Ozempic medicatio n other mild low 09/18/2023 RxNorm MD Dalila [address], [facility] [address], [facility] 4 12:08:23 32867 cat dander environme nt hives severe Not available 10/22/20232020 [facility] [facility] 4 10:36:13 [address]2966 ketamine medicatio n hives vomiting mild mild Not available 10/22/20232015 6130 RxNorm [place] [facility] 4 10:36:48 36723 Substance with sulfonami de structure and antibacte rial mechanism of action (substanc e) medicatio n rash mild Not available 10/22/20232015 49422 8003 SNOMED [place] [facility] 4 10:37:05 Medications Name Sig Start Date Stop Date Status Note LastModified by Organization Details LastModified Time Prescript ion - Prior Authoriza tion Request 10/13 completed Not Available Not Available Not Available metformin 500 mg tablet TAKE ONE TABLET BY MOUTH TWICE A DAY 05/28 completed Not Available Not Available Not Available acetamino phen 650 mg rectal supposito ry Insert every four hours as needed 11/16 completed Not Available Not Available Not Available Brady-Gest Antacid 200 mg (as calcium carbonate 500 mg) chewable tablet Take 1 tablet daily 08/11 completed Not Available Not Available Not Available alendrona te 70 mg tablet Take 1 tablet once a week 02/09 completed Not Available Not Available Not Available sertralin e 100 mg tablet TAKE TWO TABLETS BY MOUTH EVERY DAY 05/28 completed Not Available Not Available Not Available quetiapin e 200 mg tablet TAKE ONE TABLET BY MOUTH AT BEDTIME 05/28 completed Not Available Not Available Not Available Seroquel 25 mg tablet start 1 at bedtime, increase graduall y to max 4 tabs. 09/11 completed Not Available Not Available Not Available Debrox 6.5 % ear drops 3 drop in ear twice a week at bedtime as needed 2017 active Not Available Not Available Not James pulido Complete (iron) chewable tablet 2016 active Not Available Not Available Not Avyuli khan bacitraci n 500 unit/gram topical ointment appy as needed 2016 active Not Available Not Available Not Avyuli khan quetiapin e 100 mg tablet TAKE ONE TABLET BY MOUTH AT BEDTIME active Not Available Not Available No t Available acetamino phen 500 mg tablet TAKE 1-2 TABLETS BY ORAL ROUTE EVERY 6 HOURS NEEDED active Not Available Not Available No t Available levothyro xine 25 mcg tablet Take 1 tablet daily 2015 active Not Available Not Available Not Avyuli khan lancets Use every other day 02/28 completed Not Available Not Available Not Available amitripty line 25 mg tablet Take 4 tablet by mouth at bedtime start 1 tab for a week, increase to max 4 weekly 07/31 completed Not Available Not Available Not Available OneTouch Ultra Test strips TEST BLOOD SUGAR ONCE A DAY active Not Available Not Available No t Available Proctozon e-HC 2.5 % topical cream perineal applicato r APPLY TWICE A DAY IF NEEDED 02/26 completed Not Available Not Available Not Available levothyro xine 50 mcg tablet TAKE ONE TABLET BY MOUTH EVERY DAY active Not Available Not Available No t Available metformin 1,000 mg tablet TAKE ONE TABLET BY MOUTH TWICE A DAY active Not Available Not Available No t Available nystatin 100,000 unit/gram topical cream apply twice daily to affected area 2015 active Not Available Not Available Not Avai lable lisinopri l 10 mg tablet TAKE ONE TABLET BY MOUTH EVERY DAY active Not Available Not Available No t Available Tylenol 325 mg tablet 1-2 tabs q 6 hrs prn 2016 active Not Available Not Available Not Avai lable hydrocort isone 2.5 % topical cream Apply BID prn 2015 active Not Available Not Available Not Avai lable polyethyl kasia glycol 3350 (bulk) powder 1 capful of powder mixed in 8 oz of liquid then taken by mouth daily for constipa tion prn 05/28 completed Not Available Not Available Not Available Tussin DM 10 mg-100 mg/5 mL oral liquid 1 tsp q 4 hrs prn 2016 active Not Available Not Available Not Avai lable hydrochlo rothiazid e 25 mg tablet TAKE ONE TABLET BY MOUTH EVERY DAY IN THE MORNING active Not Available Not Available No t Available Novolog U-100 Insulin aspart 100 unit/mL subcutane ous solution prn per sliding scale 01/09 completed Not Available Not Available Not Available polyethyl kasia glycol 3350 17 gram/dose oral powder MIX 1 CAPFUL OF POWDER IN 8 OUNCES OF LIQUID AND DRINK BY MOUTH DAILY FOR CONSTIPA TION NEEDED active Not Available Not Available No t Available pioglitaz one 30 mg tablet TAKE ONE TABLET BY MOUTH EVERY DAY active Not Available Not Available No t Available sertralin e 20 mg/mL oral concentra te GIVE 1ML BY MOUTH DAILY 2017 active 20 mg /1 ml Not Available Not Available Not Available sertralin e 50 mg tablet Take 1 tab by mouth daily 2017 active 20 mg /1 ml Not Available Not Available Not Available Acidophil us capsule TAKE ONE CAPSULE BY MOUTH TWICE A DAY active Not Available Not Available No t Available ergocalci ferol (vitamin D2) 200 mcg/mL (8,000 unit/mL) oral drops TAKE 6ML'S BY MOUTH TWO TIMES A WEEK 10/20 completed per mom-gregg on does not take anymore Not Available Not Available Not Available Florastor 250 mg capsule 1 tab 2 times a day 10/10 completed Not Available Not Available Not Available quetiapin e 50 mg tablet TAKE 1 TABLET BY MOUTH EVERY MORNING active Not Available Not Available No t Available FreeStyle [place] Lite kit test tid, E11.9 01/09 completed Not Available Not Available Not Available ClearLax 17 gram oral powder packet 17 g PO daily in liquid prn 12/23 completed Not Available Not Available Not Available Desitin 40 % topical paste Apply to skin four times a day as needed 2015 active Not Available Not Available Not Avai lable cetirizin e 10 mg capsule Take 1 capsule every day by oral route. 2022 active Not Available Not Available Not Avai lable Vitamin D3 50 mcg (2,000 unit) capsule Take 1 tablet daily 12/03 completed Not Available Not Available Not Available Children' s Cetirizin e 1 mg/mL oral solution TAKE 10ML BY MOUTH ONCE A DAY NEEDED 05/28 completed Not Available Not Available Not Available Adult Multivita min Gummies 200 mcg chewable tablet qd 05/14 completed Not Available Not Available Not Available Flniranjanton es Complete 2016 active Not Available Not Available Not Avai lable Trulicity 1.5 mg/0.5 mL subcutane ous pen injector INJECT 1.5MG (1 PEN) SUBCUTAN EOUSLY EVERY WEEK active Not Available Not Available No t Available Trulicity 0.75 mg/0.5 mL subcutane ous pen injector INJECT 0.75MG UNDER THE SKIN ONCE WEEKLY FOR 4 WEEKS; CALL MD TO INCREASE TO 1.5MG WEEKLY 05/28 completed Not Available Not Available Not Available Lactobaci llus acidophil us 100 mg (1 billion cell) capsule TAKE ONE CAPSULE BY MOUTH TWICE A DAY --MAY OPEN AND MIX IN FOOD-- 2017 active Not Available Not Available Not Avai lable dextromet horphan 5 mg-guaife nesin 50 mg/5 mL oral liquid Sugar Free. 2 tsp every 4-6 hrs as needed for coughing active Not Available Not Available No t Available OneTouch Ultra2 Meter USE DIRECTED active Not Available Not Available No t Available OneTouch Delica Plus Lancet 33 gauge USE 1 DAILY TO TEST BLOOD SUGAR active Not Available Not Available No t Available tirzepati de 5 mg/0.5 mL subcutane ous pen injector Inject 0.5 mL every week by subcutan eous route. 09/15 completed Not Available Not Available Not Available Mounjaro 2.5 mg/0.5 mL subcutane ous pen injector ADMINIST ER 2.5 MG UNDER THE SKIN EVERY WEEK 09/17 completed Not Available Not Available Not Available Ozempic 0.25 mg or 0.5 mg (2 mg/3 mL) subcutane ous pen injector Inject 0.25 mg every week by subcutan eous route for 28 days. 09/17 completed Not Available Not Available Not Available Vitals Date Recorded Body temperature Oxygen saturation Oxygen saturation in Arterial blood by Pulse oximetry Heart rate Systolic blood pressure Diastolic blood pressure Provider Name and Address Organization Details Last Updated DateTime 4 98 [degF] 100 % 100 % 86 /min 130 mm[Hg] 80 mm[Hg] HOLLEY MCMAHON [facility] 4 11:00:43 Social History Question Answer Notes LastModified by Organizat ion Details LastModified Time Level Of Intensity: Monthly Information not available 11/28/2023 Social Barrier Yes Informatio n not available 11/28/2023 Learning Barrier Yes Informat ion not available 11/28/2023 Transportation Barrier Yes Information not available 11/28/2023 Community Senior Treasury Analyst Yes Information not available 11/28/2023 Insurance Enrollment Yes Information not available 11/28/2023 Designated Agency Yes Informa tion not available 11/28/2023 Who Do You Live With? Mom And Caregivers Information not available 11/28/2023 Sex: Male Functional Status None recorded. Mental Status None recorded. Family History Relationship Description Onset Age of this Age Resolved Age Notes Father Family history of acute medical disorder gout Mother Family history of hyperthyroidism vit D deficiency Medical History No medical history recorded. Immunizations Vaccine Type Date Status Provider Name and Address Organization Details Recorded Time MMR 03/21/1994 completed Not Available [facility] 05:11:11 Td (adult), 2 Lf tetanus toxoid, preservative free, adsorbed 02/08/2021 completed Not Available [facility] 05/09/2023 05:11:12 DTaP, unspecified formulation 03/21/1994 completed Not Available [facility] 05/09/2023 05:11:13 meningococcal ACWY, unspecified formulation 01/13/2009 completed Not Available [facility] 05/09/2023 05:11:13 Tdap 11/16/2010 completed Not Available [facility] 05:11:14 Influenza, split virus, quadrivalent, PF 08/11/2019 completed Not Available [facility] 05/09/2023 05:11:16 Influenza, split virus, quadrivalent, PF 05/27/2022 completed Not Available [facility] 05/09/2023 05:11:16 Influenza, split virus, quadrivalent, preservative 04/22/2018 completed Not Available [facility] 05/09/2023 05:11:17 Hib, unspecified formulation 03/21/1994 completed Not Available [facility] 05/09/2023 05:11:17 COVID-19, mRNA, LNP-S, PF, 100 mcg/0.5mL dose or 50 mcg/0.25mL dose 10/07/2020 completed Not Available [facility] 05/09/20 05:11:18 COVID-19, mRNA, LNP-S, PF, 100 mcg/0.5mL dose or 50 mcg/0.25mL dose 11/20/2020 completed Not Available [facility] 05/09/20 05:11:18 varicella 12/24/1996 completed Not Available [facility] 05:11:19 Hep B, unspecified formulation 10/03/1993 completed Not Available [facility] 05/09/2023 05:11:21 influenza, unspecified formulation 04/14/2015 completed Not Available [facility] 05/09/2023 05:11:21 polio, unspecified formulation 12/24/2006 completed Not Available [facility] 05/09/2023 05:11:22 Past Encounters Encounter ID Performer Location Encounter Start Date Encounter Closed Date Diagnosis/Indication Diagnosis SNOMED-CT Code [id number] RAFFY DICKINSON MD [address] [address] 11/25/2023 10:44:45 11/25/2023 11:48:59 Type 2 diabetes mellitus without complication [id number] Autism spe ctrum disorder [id number] Essential hypertension [id number] Paraplegia [id number] Goals Section Goal Description Status Start Date LastModified by Organization Details LastModified Time receive his care in a facility that can support his medical and mental diagnosis. Sheila has applied to many agencies for a life long placement for Dean. So far they have been rejected due to his complex care. A facility in [place] has been found and is working to make this happen but the [place] waiver to pay for his placement remains complex. Goal not achieved 024 KAMILLA WARNER Information not available 11/28/2023 13:43:52 Health Concerns Section Related Observation LastModified by Organization Detai ls LastModified Time None Recorded Concern Status LastModified by Organization Details LastModified Time Autism spectrum disorder Active KAMILLA WARNER Not Available 11/28/2023 13:42 :38 Payers Encounter Date Sequence Insurance Name Policy Number Policy De Jesus Covered Member ID De Jesus Member ID Guarantor Name 11/25/2023 1 [facility] (MEDICAID) Daniel Chavez [id number] Daniel Chavez Notes Date Note Type Note Provider Name and Address Organization Details Recorded Time 11/25/2023 text/html HPI Notes: Richard nt here for follow-up for his chronic issues including diabetes and autism primarily. Home sugars been averaging in the 160s. Seems to be stabilized now on present regimen include Trulicity and pioglitazone. He with grandmother, mother needs some check is quite well and up-to-date, but aggressive, some grabbing and pinching. Very brief exam with him, vital signs are unremarkable alert oriented skin good color, exam otherwise done. Per grandmother there is some issues developing in terms of his acceptance into a care facility for him down in [place]. His medicine that he was excepted for care there but there is some kind hang up, grandmother and mother not quite sure what it is. Mother is getting exhausted, she and patient's grandmother are too old and getting too frail to take care of Leo needs which are very physical at times. They are frankly exhausted. There are no local resources possible for patient. It is felt by all that he is not a candidate for a one-on-one caregiver in their home because of his constant needs and aggressiveness. He sleeps very poorly, is loud and screaming throughout most of the day. He can be a bit aggressive at times as well be very aggressive at times as well RAFFY DICKINSON MD [address], [place], [address], [facility], [facility]. 11/26/2023 19:57:50
--- OUTSIDE RECORDS SUMMARY | 2024-02-19 18:18 | XMS_ITS | Data Portability ---
Author Organization [place] - [facility] Address [address] Jose [facility] [place] [address] Assessment No assessment recorded. Plan of Treatment Reminders Order Date Submit Date Provider Last Modified By Organization Details Last Modified Time Details Appointments Acute 10 2023 02:25P M Not available Not available Not available Office Visit 30 2023 03:00P M Not available Not available Not available Lab [facility] w/ auto diff [facility]22 [facility] [address] [place] [address] [place], [address], 05/28/2023 14:34:29 CMP, serum or plasma 2022 023 [facility] [address] [place] [address] [place], [address], 05/28/2023 14:28:31 hemoglobi n A1C, fingersti ck 2022 023 [facility], [address] [place] [address], [address], 05/28/2023 13:52:36 TSH, serum or plasma 2022 023 [email or web address] [facility] (Registration ), [address] [place] [address] [place], [address], 05/28/2023 14:24:30 hemoglobi n A1C, fingersti ck 2023 024 [facility], [address] [place] [address], [address], 11/25/2023 11:09:24 Referral None recorded. Procedures None recorded. Surgeries None recorded. Imaging None recorded. Medication Orders cetirizin e 10 mg capsule 2022 023 [facility], [address] [place], [address], 05/28/2023 13:55:36 Seroquel 50 mg tablet 2022 023 [facility], [address] [place], [address], 05/28/2023 13:55:37 Patient TargetsNo targets recorded. Patient InstructionsNo instructions recorded. Reason for Referral None Reported. Results Created Date Observation Date Name Description Value Unit Range Abnormal Flag LastModifiedBy Organization Detail LastModifiedTime 05/28/2005/28/2023 COMPL ETE BLOOD COUNT W/DIF F WBC 8.73 10_3/ uL 4.4-10 .8 normal Not Available [address] [place], [address] 05/28/2023 21:39:56 05/28/2005/28/2023 COMPL ETE BLOOD COUNT W/DIF F RBC 5.85 10_6/ uL 4.36-5 .78 high Not Available [address] [place], [address] 05/28/2023 21:39:56 05/28/20 23 05/28/2023 COMPL ETE BLOOD COUNT W/DIF F HGB 17.9 g/dL 13.5-1 7.5 high Not Available [address] [place], [address] 05/28/2023 21:39:56 05/28/20 23 05/28/2023 COMPL ETE BLOOD COUNT W/DIF F HCT 51.4 % 40.0-5 0.0 high Not Available [address] [place], [address] 05/28/2023 21:39:56 05/28/20 23 05/28/2023 COMPL ETE BLOOD COUNT W/DIF F MCV 88 fL 80-95 normal Not Available [address] [place], [address] 05/28/2023 21:39:56 05/28/20 23 05/28/2023 COMPL ETE BLOOD COUNT W/DIF F MCH 30.6 pg 27.0-3 3.0 normal Not Available [address] [place], [address] 05/28/2023 21:39:56 05/28/20 23 05/28/2023 COMPL ETE BLOOD COUNT W/DIF F MCHC 34.8 % 32.0-3 6.0 normal Not Available [address] [place], [address] 05/28/2023 21:39:56 05/28/20 23 05/28/2023 COMPL ETE BLOOD COUNT W/DIF F RDW 13.2 % 11.8-1 4.1 normal Not Available [address] [place], [address] 05/28/2023 21:39:56 05/28/20 23 05/28/2023 COMPL ETE BLOOD COUNT W/DIF F platelet count 169 10_3/ uL 130-40 0 normal Not Available [address] [place], [address] 05/28/2023 21:39:56 05/28/20 23 05/28/2023 COMPL ETE BLOOD COUNT W/DIF F MPV 11.9 fL 8.0-11 .0 high Not Available [address] [place], [address] 05/28/2023 21:39:56 05/28/20 23 05/28/2023 COMPL ETE BLOOD COUNT W/DIF F neutrophils % 71.5 Not Available [address] [place], [address] 05/28/2023 21:39:56 05/28/20 23 05/28/2023 COMPL ETE BLOOD COUNT W/DIF F lymphocytes % 18.7 Not Available [address] [place], [address] 05/28/2023 21:39:56 05/28/20 23 05/28/2023 COMPL ETE BLOOD COUNT W/DIF F monocytes % 7.9 Not Available [address] [place], [address] 05/28/2023 21:39:56 05/28/20 23 05/28/2023 COMPL ETE BLOOD COUNT W/DIF F eosinophils % 0.9 Not Available [address] [place], [address] 05/28/2023 21:39:56 05/28/20 23 05/28/2023 COMPL ETE BLOOD COUNT W/DIF F basophils % 0.7 Not Available [address] [place], [address] 05/28/2023 21:39:56 05/28/20 23 05/28/2023 COMPL ETE BLOOD COUNT W/DIF F immature grans % 0.3 Not Available [address] [place], [address] 05/28/2023 21:39:56 05/28/20 23 05/28/2023 COMPL ETE BLOOD COUNT W/DIF F nucleated RBC 0.0 % 0.0-0. 3 normal Not Available [address] [place], [address] 05/28/2023 21:39:56 05/28/20 23 05/28/2023 COMPL ETE BLOOD COUNT W/DIF F absolute neutrophil count 6.24 10_3/ uL 1.2-6. 7 normal Not Available [address] [place], [address] 05/28/2023 21:39:56 05/28/20 23 05/28/2023 COMPL ETE BLOOD COUNT W/DIF F absolute lymphocyte count 1.63 10_3/ uL 1.2-3. 4 normal Not Available [address] [place], [address] 05/28/2023 21:39:56 05/28/20 23 05/28/2023 COMPL ETE BLOOD COUNT W/DIF F absolute monocyte count 0.69 10_3/ uL 0.1-0. 8 normal Not Available [address] [place], [address] 05/28/2023 21:39:56 05/28/20 23 05/28/2023 COMPL ETE BLOOD COUNT W/DIF F absolute eosinophil count 0.08 10_3/ uL 0.0-0. 7 normal Not Available [address] [place], [address] 05/28/2023 21:39:56 05/28/20 23 05/28/2023 COMPL ETE BLOOD COUNT W/DIF F absolute basophil count 0.06 10_3/ uL 0.0-0. 2 normal Not Available [address] [place], [address] 05/28/2023 21:39:56 05/28/20 23 05/28/2023 COMPR EHENS KANDICE METAB OLIC PANEL calcium 9.7 mg/dL 8.5-10 .1 normal Not Available [address] [place], [address] 05/28/2023 21:58:58 05/28/20 23 05/28/2023 COMPR EHENS KANDICE METAB OLIC PANEL glucose 139 mg/dL 74-106 high Not Available [address] [place], [address] 05/28/2023 21:58:58 05/28/20 23 05/28/2023 COMPR EHENS KANDICE METAB OLIC PANEL BUN 21 mg/dL 7-18 high Not Available [address] [place], [address] 05/28/2023 21:58:58 05/28/20 23 05/28/2023 COMPR EHENS KANDICE METAB OLIC PANEL creatinine 1.3 mg/dL 0.70-1 .30 normal Not Available [address] [place], [address] 05/28/2023 21:58:58 05/28/20 23 05/28/2023 COMPR EHENS KANDICE METAB OLIC PANEL estimated GFR 75.79 mL/min /1.73m 2 Not Available [address] [place], [address] 05/28/2023 21:58:58 05/28/20 23 05/28/2023 COMPR EHENS KANDICE METAB OLIC PANEL total protein 8.3 g/dL 6.4-8. 2 high Not Available [address] [place], [address] 05/28/2023 21:58:58 05/28/20 23 05/28/2023 COMPR EHENS KANDICE METAB OLIC PANEL albumin 4.3 g/dL 3.4-5. 0 normal Not Available [address] [place], [address] 05/28/2023 21:58:58 05/28/20 23 05/28/2023 COMPR EHENS KANDICE METAB OLIC PANEL bilirubin, total 1.3 mg/dL 0.2-1. 0 high Not Available [address] [place], [address] 05/28/2023 21:58:58 05/28/20 23 05/28/2023 COMPR EHENS KANDICE METAB OLIC PANEL alk phos 66 U/L 46-116 normal Not Available [address] [place], [address] 05/28/2023 21:58:58 05/28/20 23 05/28/2023 COMPR EHENS KANDICE METAB OLIC PANEL sodium 140 mmol/ L 136-14 5 normal Not Available [address] [place], [address] 05/28/2023 21:58:58 05/28/20 23 05/28/2023 COMPR EHENS KANDICE METAB OLIC PANEL potassium 4.9 mmol/ L 3.5-5. 1 normal Not Available [address] [place], [address] 05/28/2023 21:58:58 05/28/20 23 05/28/2023 COMPR EHENS KANDICE METAB OLIC PANEL chloride 103 mmol/ L 98-107 normal Not Available [address] [place], [address] 05/28/2023 21:58:58 05/28/20 23 05/28/2023 COMPR EHENS KANDICE METAB OLIC PANEL CO2 24.7 mmol/ L 21.0-3 2.0 normal Not Available [address] [place], [address] 05/28/2023 21:58:58 05/28/20 23 05/28/2023 COMPR EHENS KANDICE METAB OLIC PANEL anion gap 12.3 mmol/ L 3-11 high Not Available [address] [place], [address] 05/28/2023 21:58:58 05/28/20 23 05/28/2023 COMPR EHENS KANDICE METAB OLIC PANEL AST 54 U/L 15-37 high Not Available [address] [place], [address] 05/28/2023 21:58:58 05/28/20 23 05/28/2023 COMPR EHENS KANDICE METAB OLIC PANEL ALT 80 U/L 16-63 high Not Available [address] [place], [address] 05/28/2023 21:58:58 05/28/20 23 05/28/2023 TSH TSH 1.26 uIU/m L 0.36-3 .74 normal Not Available [address] [place], [address] 05/28/2023 21:58:59 05/28/20 23 05/28/2023 hemog lobin A1C, finge rstic k HbA1C 5.8 Not Available [address], [address], 05/28/2023 13:32:02 05/28/20 23 05/28/2023 TSH, serum or plasm a TSH, serum or plasma 1.26 micro intl_ units /mL 0.36-3 .74 normal Not Available Not Available 01/30/2024 22:04:59 05/28/20 23 05/28/2023 hemog lobin (Hb), blood hemoglobin (Hb), blood 17.9 g/dL 13.5-1 7.5 high Not Available Not Available 01/30/2024 22:04:58 05/28/20 23 05/28/2023 gluco se, QN [mass /volu me], blood glucose ser 139 mg/dL 74-106 high Not Available [facility] [address], [place], [address], 01/30/2024 22:04:57 05/28/20 23 05/28/2023 CMP, serum or plasm a albumin, serum or plasma 4.3 g/dL 3.4-5. 0 normal Not Available Not Available 01/30/2024 22:04:41 05/28/20 23 05/28/2023 CMP, serum or plasm a aniongap 12.3 mmol/ L 3-11 high Not Available Not Available 01/30/2024 22:04:41 05/28/20 23 05/28/2023 CMP, serum or plasm a bilirubin, total, serum or plasma 1.3 mg/dL 0.2-1. 0 high Not Available Not Available 01/30/2024 22:04:41 05/28/20 23 05/28/2023 CMP, serum or plasm a BUN (blood urea nitrogen), serum or plasma 21 mg/dL 7-18 high Not Available Not Available 22:04:41 05/28/20 23 05/28/2023 CMP, serum or plasm a calcium, qn, serum or plasma 9.7 mg/dL 8.5-10 .1 normal Not Available Not Available 01/30/2024 22:04:41 05/28/20 23 05/28/2023 CMP, serum or plasm a chloride, serum or plasma 103 mmol/ L 98-107 normal Not Available Not Available 01/30/2024 22:04:41 05/28/20 23 05/28/2023 CMP, serum or plasm a CO2, (carbon dioxide), total, serum or plasma 24.7 mmol/ L 21.0-3 2.0 normal Not Available Not Available 01/30/2024 22:04:41 05/28/20 23 05/28/2023 CMP, serum or plasm a creatinine, serum or plasma 1.3 mg/dL 0.70-1 .30 normal Not Available Not Available 01/30/2024 22:04:41 05/28/20 23 05/28/2023 CMP, serum or plasm a eGFR 75.79 (?) mL/mi n/1.7 3m2 mL/min /1.73m 2 Not Available Not Available 01/30/2024 22:04:41 05/28/20 23 05/28/2023 CMP, serum or plasm a potassium, serum or plasma 4.9 mmol/ L 3.5-5. 1 normal Not Available Not Available 01/30/2024 22:04:41 05/28/20 23 05/28/2023 CMP, serum or plasm a protein, total, serum 8.3 g/dL 6.4-8. 2 high Not Available Not Available 01/30/2024 22:04:41 05/28/20 23 05/28/2023 CMP, serum or plasm a AST/SGOT (aspartate aminotransfe rase), serum or plasma 54 units /L 15-37 high Not Available Not Available 01/30/2024 22:04:41 05/28/20 23 05/28/2023 CMP, serum or plasm a ALT (alanine aminotransfe rase), serum or plasma 80 units /L 16-63 high Not Available Not Available 01/30/2024 22:04:41 05/28/20 23 05/28/2023 CMP, serum or plasm a sodium, serum or plasma 140 mmol/ L 136-14 5 normal Not Available Not Available 01/30/2024 22:04:41 05/28/20 23 05/28/2023 CBC % baso auto 0.7 (?) % Not Available Not Available 01/30/20 22:04:19 05/28/20 23 05/28/2023 CBC basoph count 0.06 10 3/uL 10*3/ mm3 0.0-0. 2 normal Not Available Not Available 01/30/2024 22:04:19 05/28/20 23 05/28/2023 CBC eosinophil count, manual, blood 0.08 10 3/uL 10*3/ mm3 0.0-0. 7 normal Not Available Not Available 01/30/2024 22:04:19 05/28/20 23 05/28/2023 CBC eosinophil % 0.9 (?) % Not Available Not Available 01/30/20 22:04:19 05/28/20 23 05/28/2023 CBC hematocrit, automated count, blood 51.4 % 40.0-5 0.0 high Not Available Not Available 01/30/2024 22:04:19 05/28/20 23 05/28/2023 CBC imm granu % 0.3 (?) % Not Available Not Available 01/30/20 22:04:19 05/28/20 23 05/28/2023 CBC lymph count 1.63 10 3/uL 10*3/ mm3 1.2-3. 4 normal Not Available Not Available 01/30/2024 22:04:19 05/28/20 23 05/28/2023 CBC MCH 30.6 pg 27.0-3 3.0 normal Not Available Not Available 01/30/2024 22:04:19 05/28/20 23 05/28/2023 CBC MCHC 34.8 % 32.0-3 6.0 normal Not Available Not Available 01/30/2024 22:04:19 05/28/20 23 05/28/2023 CBC MCV, blood 88 fL 80-95 normal Not Available No t Available 01/30/2024 22:04:19 05/28/20 23 05/28/2023 CBC monocyte % 7.9 (?) % Not Available Not Available 01/30/20 22:04:19 05/28/20 23 05/28/2023 CBC monocyte cnt 0.69 10 3/uL 10*3/ mm3 0.1-0. 8 normal Not Available Not Available 01/30/2024 22:04:19 05/28/20 23 05/28/2023 CBC MPV 11.9 fL 8.0-11 .0 high Not Available Not Available 01/30/2024 22:04:19 05/28/20 23 05/28/2023 CBC neutro count 6.24 10 3/uL 10*3/ mm3 1.2-6. 7 normal Not Available Not Available 01/30/2024 22:04:19 05/28/20 23 05/28/2023 CBC nucl RBC-umd 0.0 % 0.0-0. 3 normal Not Available Not Available 01/30/2024 22:04:19 05/28/20 23 05/28/2023 CBC platelets, auto, blood 169 10 3/uL 10*3/ mm3 130-40 0 normal Not Available Not Available 01/30/2024 22:04:19 05/28/20 23 05/28/2023 CBC PMN % 71.5 (?) % Not Available Not Available 01/30/20 22:04:19 05/28/20 23 05/28/2023 CBC RBC count, blood 5.85 10 6/uL 10*6/ mm3 4.36-5 .78 high Not Available Not Available 01/30/2024 22:04:19 05/28/20 23 05/28/2023 CBC RDW 13.2 % 11.8-1 4.1 normal Not Available Not Available 01/30/2024 22:04:19 05/28/20 23 05/28/2023 CBC WBC 8.73 10 3/uL 10*3/ mm3 4.4-10 .8 normal Not Available Not Available 01/30/2024 22:04:19 11/25/19 24 11/25/2023 hemog lobin A1C, finge rstic k hemoglobin A1C 6.6 % <5.7 Not Available [address], [address], 11/25/2023 11:06:28 Result Notes None recorded. Problems Name Status Onset Date Resolution Date Notes Provider Name and Address Organization Details Recorded Time Hypothyroidis m Active [address], [place], [address] , [facility] 4 15:58:56 Essential hypertension Active [address], [place], [address] , [facility] 4 15:58:48 Adult health examination Active 2015 Lennox palmer, [facility] 4 10:35:05 Pain in right foot Completed 201601/02/2017 12/23/2016 - Comments only - Nikki Marques MD - No significant injury or tenderness to palpation no treatment needed. Problem Code: M79.671; Problem Code Type: ICD-10; Not Available [facility] 3 05:23:16 Developmental academic disorder Active 2016 Lennoxroscoe JulienDavid null, [facility] 4 10:35:16 Type 2 diabetes mellitus without complication Active [address], [facility] [address] , [facility] 4 15:55:29 Paraplegia Active [address], [facility] [address] , [facility] 4 15:56:33 Stereotypy habit disorder Active [address], [facility] [address] , [facility] 4 15:58:31 Visual disturbance Completed 202110/14/2023 [...] referral for him to see ophthalmology at [facility] where they have the specialist that could work with him and his disability. Problem Code: H53.9; Problem Code Type: ICD-10; MD [address], [facility] [address] , [facility] 4 15:55:58 Pre-surgery evaluation Completed 202101/20/2022 Problem Code: Z01.818; Problem Code Type: ICD-10; Not Available [facility] 3 05:23:16 Pre-surgery evaluation Completed 202104/20/2022 Problem Code: Z01.818; Problem Code Type: ICD-10; Not Available [facility] 3 05:23:16 Conduct disorder Completed 202210/14/2023 Problem Code: F91.8; Problem Code Type: ICD-10; RAFFY DICKINSON MD [address], [place], [address] , [facility] 4 15:58:22 Insomnia Active 2022 [facility] 10[facility]35[facility]26 Pre-surgery evaluation Completed 202203/15/2023 Problem Code: Z01.818; Problem Code Type: ICD-10; Not Available [facility] 3 05:23:17 Increased frequency of urination Completed 201702/26/2022 Problem Code: R35.0; Problem Code Type: ICD-10; Not Available [facility] 3 05:23:17 Impacted cerumen of bilateral ears Completed 201502/26/2022 Problem Code: H61.23; Problem Code Type: ICD-10; Not Available [facility] 3 05:23:19 Hyperlipidemi a screening Completed 201802/26/2022 Problem Code: Z13.220; Problem Code Type: ICD-10; Not Available [facility] 3 05:23:21 Diarrhea Completed 201601/15/2018 Problem Code: R19.7; Problem Code Type: ICD-10; Not Available [facility] 3 05:23:22 Hyperglycemia Completed 201601/15/2018 08/11/2019 [...] R73.9; Problem Code Type: ICD-10; Not Available [facility] 3 05:23:22 Anxiety disorder Completed 201505/14/2017 Problem Code: F41.9; Problem Code Type: ICD-10; Not Available [facility] 3 05:23:22 Type 2 diabetes mellitus without complication Completed 201501/09/2017 Problem Code: E11.9; Problem Code Type: ICD-10; MD [address]ila [address], [place], [address] , [facility] 4 15:55:30 Herpesviral vesicular dermatitis Completed 201605/14/2017 Problem Code: B00.1; Problem Code Type: ICD-10; Not Available [facility] 3 05:23:26 Tinea corporis Completed 201602/26/2022 Problem Code: B35.4; Problem Code Type: ICD-10; Not Available [facility] 3 05:23:27 Muscle weakness Completed 201604/22/2018 Problem Code: M62.81; Problem Code Type: ICD-10; Not Available [facility] 3 05:23:28 Foot pain Completed 201702/26/2022 Problem Code: M79.673; Problem Code Type: ICD-10; Not Available [facility] 3 05:23:28 Prediabetes Completed 201603/26/2023 02/08/2021 - Comments only - Nikki Marques MD - Patient's blood sugars have been within normal range we will go ahead and get a repeat A1c to see where he is at now. Problem Code: R73.03; Problem Code Type: ICD-10; Not Available [facility] 3 05:23:31 Autism spectrum disorder Active [address], [place], [address] , [facility] 4 15:58:28 Allergic rhinitis Active [address], [place], [address] , [facility] 3 13:55:26 Problem Notes None recorded. Medical Equipment None Reported. Allergies Allergen ID Allergen Name Allergen Category Reaction Reaction Severity Criticality Documentation Date Start Date Code Code System Note Provider Name and Address Organization Details Recorded Time 82305 Ozempic medicatio n other mild low 09/18/2023 RxNorm RAFFY DICKINSON MD [address], [place], [address] [place] [address] 4 12:08:23 12588 cat dander environme nt hives severe Not available 10/22/20232020 [facility] 4 10:36:13 82679 ketamine medicatio n hives vomiting mild mild Not available 10/22/20232015 6130 RxNorm [facility] 4 10:36:48 98993 Substance with sulfonami de structure and antibacte rial mechanism of action (substanc e) medicatio n rash mild Not available 10/22/20232015 63063 8003 SNOMED [facility]roscoe [facility] 4 10:37:05 Medications Name Sig [...] 2017 active Not Available Not Available Not Avyuli khan Telma es Complete (iron) chewable tablet 2016 active Not Available Not Available Not Avai labarcadio bacitraci n 500 unit/gram topical ointment appy as needed 2016 active Not Available Not Available Not [facility] labarcadio quetiapin e 100 mg tablet TAKE ONE [...] Available Not Available No t Available FreeStyle Carson Lite kit test tid, E11.9 01/09 completed [...] completed Not Available Not Available Not Available Telma es Complete 2016 active Not Available Not [...] and Address Organization Details Last Updated DateTime 98 [degF] 100 % 100 % 86 /min 130 mm[Hg] 80 mm[Hg] HOLLEY MCMAHON MA [facility] 11:00:43 Date Recorded Oxygen saturation Oxygen saturation in Arterial blood by Pulse oximetry Heart rate Body temperature Systolic blood pressure Diastolic blood pressure Provider Name and Address Organization Details Last Updated DateTime 4 97 % 97 % 103 /min 98.9 [degF] 119 mm[Hg] 79 mm[Hg] Sarah Gunter RN [facility] 15:55:37 Date Recorded Respiratory rate Provider Name a pa Address Organization Details Last Updated DateTime 02/19/2024 17 /min [address], [place], [address], [facility] 02/19/2024 16:51:20 Date Recorded Systolic blood pressure Diastolic blood pressure Provider Name and Address Organization Details Last Updated DateTime 05/28/2023 130 mm[Hg] 76 mm[Hg] HOLLEY MCMAHON MA [facility] 05/28/2023 13:25:21 Social History Question Answer Notes LastModified by Organizat ion Details LastModified Time Level Of Intensity: Monthly Information not available 11/28/2023 Social Barrier Yes Informatio n not available 11/28/2023 Learning Barrier Yes Informat ion not available 11/28/2023 Transportation Barrier Yes Information not available 11/28/2023 Community Rolled Ham Lacer Yes Information not available 11/28/2023 Insurance Enrollment [...] Recorded Time MMR 03/21/1994 completed Not Available [facility] 05:11:11 Td (adult), 2 Lf tetanus toxoid, preservative free, adsorbed 02/08/2021 completed Not Available [facility] 05/09/2023 05:11:12 DTaP, unspecified formulation 03/21/1994 completed Not Available [facility] 05/09/2023 05:11:13 meningococcal ACWY, unspecified formulation 01/13/2009 completed Not Available [facility] 05/09/2023 05:11:13 Tdap 11/16/2010 completed Not Available [facility] 05:11:14 Influenza, split virus, quadrivalent, PF 08/11/2019 completed Not Available [facility] 05/09/2023 05:11:16 Influenza, split virus, quadrivalent, PF 05/27/2022 completed Not Available [facility] 05/09/2023 05:11:16 Influenza, split virus, quadrivalent, preservative 04/22/2018 completed Not Available [facility] 05/09/2023 05:11:17 Hib, unspecified formulation 03/21/1994 completed Not Available [facility] 05/09/2023 05:11:17 COVID-19, mRNA, LNP-S, PF, 100 mcg/0.5mL dose or 50 mcg/0.25mL dose 10/07/2020 completed Not Available [facility] 05/09/20 05:11:18 COVID-19, mRNA, LNP-S, PF, 100 mcg/0.5mL dose or 50 mcg/0.25mL dose 11/20/2020 completed Not Available [facility] 05/09/20 05:11:18 varicella 12/24/1996 completed Not Available [facility] 05:11:19 Hep B, unspecified formulation 10/03/1993 completed Not Available [facility] 05/09/2023 05:11:21 influenza, unspecified formulation 04/14/2015 completed Not Available [facility] 05/09/2023 05:11:21 polio, unspecified formulation 12/24/2006 completed Not Available [facility] 05/09/2023 05:11:22 Past Encounters Encounter ID Performer Location Encounter Start Date Encounter Closed Date Diagnosis/Indication Diagnosis SNOMED-CT Code [id number] RAFFY DICKINSON MD [address] [address] 05/28/2023 12:58:23 05/28/2023 13:50:48 Adult health examination [id number] Type 2 pamela betes mellitus without complication [id number] Autism spe ctrum disorder [id number] Paraplegia 91300400 Essential hypertension 54253707 Hypothyroidism 64567132 Allergic rhinitis 049748 04 [id number] RAFFY DICKINSON MD [address] [address] 11/25/2023 10:44:45 11/25/2023 11:48:59 Type 2 diabetes mellitus without complication [id number] Autism spe ctrum disorder [id number] Essential hypertension [id number] Paraplegia [id number] Jackie Angeles MA [address] [address] 02/19/2024 14:26:38 02/19/2024 16:54:33 Goals Section Goal Description Status Start Date LastModified by Organization Details LastModified Time receive his care in a facility that can support his medical and mental diagnosis. Sheila has applied to many agencies for a life long placement for Dean. So far they have been rejected due to his complex care. A facility in [place] has been found and is working to make this happen but the [place] waiver to pay for his placement remains complex. Goal not achieved Brendan KOHLI ALANA Information not available 11/28/2023 13:43:52 Health Concerns Section Related Observation LastModified by Organization Detai ls LastModified Time None Recorded Concern Status LastModified by Organization Details LastModified Time Autism spectrum disorder Active KAMILLA WARNER Not Available 11/28/2023 13:42 :38 Advance Directives Directive None Recorded Payers Encounter Date Sequence Insurance Name Policy Number Policy De Jesus Covered Member ID De Jesus Member ID Guarantor Name 05/28/[address] [facility] (MEDICAID) Daniel Chavez [id number] Daniel Chavez 11/25/[address] [facility] (MEDICAID) Daniel Chavez [id number] Daniel Chavez Notes Date Note Type Note Provider Name and Address Organization Details Recorded Time 3 text/html HPI Notes: Daniel is here for his annual visit for preventive needs, follow-up for his chronic issues including primarily autism and diabetes. he has been very agitated and aggressive during the days recently. In recent months we had to back off his combination Seroquel and sertraline because of what appeared to be some serotonergic issues. Presently he is actually off of sertraline entirely, just taking 1/2 mg of the Seroquel at night. He is sleeping quite well but days are difficult. It was not my original intention to have him stop them today entirely. His blood sugars doing much better since starting the Trulicity. He seems generally pretty happy, they have a daytime provider now helping him with takes a great load off of patient's mother and grandmother. He goes swimming daily which he enjoys greatly. Some issues at night difficulty getting to the bathroom given mother and her grandmother are the only ones there. It turns out he is taking his hydrochlorothiazide evenings which he gets for a change. She also agrees for a bedside commode given his paraplegia and need for full assistance transferring. RAFFY DICKINSON MD [address], [place], [address], [facility]. 05/28/2023 14:44:29 4 text/html HPI Notes: Patient here for follow-up for his chronic issues [...] a care facility for him down in [place]. His medicine that he was excepted for [...] RAFFY DICKINSON MD [address], [place], [address], [facility], [facility]. 11/26/2023 19:57:50
--- OUTSIDE RECORDS SUMMARY | 2024-02-19 18:19 | XMS_ITS | Patient Health Record ---
Author Organization [facility] Address [address] [place] [address] Care Team Providers Care Unit Control Worker Name Role Phone [facility] PLASCENCIA MD Primary Care Provider Unavailab ervin Ortizebonymarcio Ritesh Unavailable [phone] ALLERGIES Allergen (clinical drug ingredient) Drug/Non Drug Allergy documented on EMR Reaction Allergy Type Onset Date Status Cat dander cats (uncoded) Unknown Allergy Acti ve ketamine ketamine (uncoded) Unknown Allergy A ctive Substance with sulfonamide structure and antibacterial mechanism of action (substance) sulfa (uncoded) Unknown Allergy Active REASON FOR REFERRAL No Information MEDICATIONS Medication SIG (Take, Route, Frequency, Duration) Notes Start Date End Date Status Sertraline HCl 25 MG 1 tablet Orally Once a day for 30 day(s) Active Nystatin [id number] units/mL 4 mL orally 4 times a day Active Acidophilus 100 MG as directed Orally Active Levothyroxine Sodium 50 mcg (0.05 mg) 1 tab(s) orally once a day for 30 day(s) Active HYDROCORTISONE STOP*please review for potential _update for e-prescription and drug interaction check* Active CYDNEY-GEST 500 mg 1 tab(s) chewed once a day STOP*please review for potential _update for e-prescription and drug interaction check* Not-Taking Acetaminophen 650 mg 1 SUPP(s) rectally every 4 hours Active DESITIN STOP*please review for potential _update for e-prescription and drug interaction check* Active TUSSIN DM PRN Active TYLENOL 325 mg 2 tab(s) orally every 4 hours STOP*please review for potential _update for e-prescription and drug interaction check* Active Flintstones Complete Multiple Vitamins with Minerals 1 tab(s) chewed once a day for 30 day(s) Active Debrox 6.5% 5 gtt in each affected ear 3 times a day for 3 day(s) Active BACITRACIN OPHTHALMIC 500 units/g 1 judi in each affected eye every 4 hours for 10 day(s) STOP*please review for potential _update for e-prescription and drug interaction check* Active SOCIAL HISTORY Tobacco Use: Social History Observation Description Date Details (start date - stop date) Never Smoker NA - NA Sex Assigned At : Social History Observation Description Sex Assigned At Unknown SMOKING Question Answer Notes Are you a: nonsmoker PROBLEMS Problem Type ICD Code Onset Dates Problem Status W/U Status Risk SNOMED Code Notes Problem Hammertoe (M20.40) Active confirmed Hammer toe ([id number]) PLAN OF TREATMENT No Information Insurance Providers Payer Name Payer Address Payer Phone Subscriber Number Group Number Insured Name Patient Relationship to Insured Coverage Start Date Coverage End Date [place] [employer] [place], [place] [id number] ILIA HERRON Self - patient is the insured SELF [place]Y [place] [address] [place] [address] ILIA HERRON Self - patient is the insured MEDICAL (GENERAL) HISTORY Medical History History ICD Code foot pain urinary frequency paraplegia non verbal learning disorder tinea corporis transient right leg weakness htn hypothyroidism active infantile autism Surgical History Surgery Date(Month/Year) undestined testicle surgery as a toddler spiral fracture of the femur ([facility] ent) 2002 chema villalobos 2006
[2024-02-19 19:35] VITALS: RESP 16
[2024-02-19] MEDS: Amox. 875/Clav. 125, 2 TABS/BTL 1 TAB PO (19:44)
== END 2024-02-19 19:43 | disposition home or self-care (01) ==
PROVIDERS: Emergency Provider Student in an Organized Health Care Education/Training Program; PCP Family Medicine
DX: J18.9 Pneumonia, unspecified organism (principal); E11.9 Type 2 diabetes mellitus without complications; I10 Essential (primary) hypertension; F84.0 Autistic disorder
CPT/HCPCS: 82962; 87637; 99283; 71045

== ENCOUNTER 2024-06-02 14:38 | Outpatient (REF) | payer MEDICARE, MEDICAID, SELFPAY ==
[2024-06-02 21:10] LABS: Abs Immature Grans 0.01 10^3/uL (0.0-0.06); Absolute Basophil Count 0.03 10^3/uL (0.0-0.2); Absolute Eosinophil Count 0.07 10^3/uL (0.0-0.7); Absolute Lymphocyte Count 1.01 10^3/uL (1.2-3.4); Absolute Neutrophil Count 3.93 10^3/uL (1.2-6.7); Basophils % 0.6 %; Eosinophils % 1.3 %; HCT 50.2 % (40.0-50.0); HGB 17.2 g/dL (13.5-17.5); Immature Grans % 0.2 %; Lymphocytes % 18.9 %; MCH 30.8 pg (27.0-33.0); MCHC 34.3 % (32.0-36.0); MCV 90 fL (80-95); Monocytes % 5.6 %; Neutrophils % 73.4 %; Platelet Count 126 10^3/uL (130-400); RBC 5.59 10^6/uL (4.36-5.78); RDW 12.6 % (11.8-14.1); RDW-SD 41.4 fL; WBC 5.35 10^3/uL (4.4-10.8)
[2024-06-02 21:28] LABS: ALT 95 U/L (16-63); AST 57 U/L (15-37); Albumin 4.1 g/dL (3.4-5.0); Alkaline Phosphatase 82 U/L (46-116); Anion Gap 10.8 mmol/L (3-11); BUN 19 mg/dL (7-18); Bilirubin, Total 1.51 mg/dL (0.2-1.0); CO2 27.2 mmol/L (21.0-32.0); CREATININE 1.1 mg/dL (0.70-1.30); Calcium 9.3 mg/dL (8.5-10.1); Chloride 103 mmol/L (98-107); Estimated GFR 92.04 (mL/min/1.73m2); Glucose 240 mg/dL (74-106); Potassium 4.7 mmol/L (3.5-5.1); Sodium 141 mmol/L (136-145); TSH 3.54 uIU/mL (0.36-3.74); Total Protein 8.1 g/dL (6.4-8.2)
== END 2024-06-02 14:39 | disposition home or self-care (01) ==
LOC: NCHCN 14:38
PROVIDERS: PCP Family Medicine; Visit Provider Family Medicine
DX: I10 Essential (primary) hypertension (principal); E03.9 Hypothyroidism, unspecified
CPT/HCPCS: 80053; 84443; 85025

== ENCOUNTER 2025-06-14 15:47 | Outpatient (REF) | payer MEDICARE, MEDICAID, SELFPAY ==
[2025-06-14 21:51] LABS: Microalb ug/mg Crea 35.7 ug/mg Cr
== END 2025-06-14 15:48 | disposition home or self-care (01) ==
LOC: NCHCN 15:47
PROVIDERS: PCP Family Medicine; Visit Provider Family Medicine
DX: E11.9 Type 2 diabetes mellitus without complications (principal)
CPT/HCPCS: 82043; 82570